=== PATIENT | female | born 1990 | race Caucasian/White ===

== ENCOUNTER 2018-04-08 10:40 | Emergency (ER) | payer MEDICAID ==
[~2018-04-08] VITALS: Ht 162.6 cm; Wt 59.1 kg
[~2018-04-08 10:40] MED LIST: BUSP5TAB3 PO; DIPH-423 PO; HYDR-4383 PO; IBUP-1984 PO; IMO2C PO; PRED20TA PO; PREN-139 PO
[2018-04-08 10:50] VITALS: BP 117/73
[2018-04-09] MEDS ORDERED: NO HOME MEDS (14:22)
== END 2018-04-08 13:42 | disposition left against medical advice (07) ==
LOC: ER 10:41
DX: R10.9 Unspecified abdominal pain (principal); R11.10 Vomiting, unspecified; Z53.21 Procedure and treatment not carried out due to patient leaving prior to being seen by health care provider

== ENCOUNTER 2018-04-09 02:46 | Inpatient (IN) | payer MEDICAID ==
[~2018-04-09] VITALS: Ht 162.6 cm; Wt 130.0 kg
[2018-04-09 03:45] LABS: BASOPHILS % (AUTO) 0.3 % (0-1); EOSINOPHILS % (AUTO) 0.4 % (0-6); HEMATOCRIT 37.7 % (35.0-45.0); HEMOGLOBIN 12.3 g/dl (12.0-16.0); INR 1.1 INR; LYMPHOCYTES # (AUTO) 1.4 X10'3 (1.1-4.8); MEAN CORPUSCULAR HGB CONC 32.7 g/dL (33.0-36.5); MEAN CORPUSCULAR VOLUME 79.6 FL (78-98); MEAN PLATELET VOLUME 8.3 FL (7.4-10.4); MONOCYTES # (AUTO) 0.7 X10'3 (0-0.9); MONOCYTES % (AUTO) 7.5 % (2-12); NEUTROPHILS # (AUTO) 7.6 X10'3 (1.8-7.7); NEUTROPHILS % (AUTO) 77.2 % (42-75); PLATELET COUNT 217 X10'3 (140-440); PROTHROMBIN TIME 11.2 SECONDS (9.0-12.0); RED BLOOD COUNT 4.74 X10'6 (4.20-5.60); WHITE BLOOD COUNT 9.8 X10'3 (4.5-11.0)
[2018-04-09 03:53] LABS: ALBUMIN 3.3 G/DL (3.4-5.0); ALBUMIN/GLOBULIN RATIO 0.8 (1.1-1.5); ALKALINE PHOSPHATASE 199 IU/L (46-116); ANION GAP 16 (8-16); ASPARTATE AMINO TRANSFERASE 332 U/L (10-37); BILIRUBIN,TOTAL 1.4 MG/DL (0.1-1.0); BLOOD UREA NITROGEN 11 MG/DL (7-18); BUN/CREATININE RATIO 14.1 (6.6-38.0); CALCIUM 9.2 MG/DL (8.5-10.1); CHLORIDE 97 MMOL/L (99-107); CREATININE 0.78 MG/DL (0.40-0.90); GLUCOSE 151 MG/DL (70-104); LIPASE 80 U/L (73-393); POTASSIUM 3.4 MMOL/L (3.5-5.1); SODIUM 133 MMOL/L (135-145); TOTAL CARBON DIOXIDE 20.1 MMOL/L (24-32); TOTAL PROTEIN 7.7 G/DL (6.4-8.2); eGFR 87 ML/MIN
[2018-04-09 03:59] LABS: LYMPHOCYTES % (AUTO) 14.6 % (21-51)
[2018-04-09 04:00] LABS: ALANINE AMINOTRANSFERASE 1142 U/L (12-78)
[2018-04-09 07:15] LABS: CLARITY,URINE SLIGHTLY CLOUDY (Clear); COLOR,URINE AMBER (Yellow); GLUCOSE, URINE NEGATIVE (Neg); KETONES,URINE 40 mg/dl (Neg); LEUKOCYTE ESTERASE ,URINE LARGE (Neg); NITRITES, URINE POSITIVE (Neg); OCCULT BLOOD,URINE NEGATIVE (Neg); PROTEIN,URINE NEGATIVE (Neg)
[2018-04-09 07:17] LABS: UA COLLECTION TYPE VOIDED
[2018-04-09 07:20] LABS: URINE HCG NEGATIVE (NEG)
[2018-04-09 07:26] LABS: BACTERIA,URINE 3+ /HPF (Neg); MUCUS STRANDS NONE SEEN /LPF (Neg); SQUAMOUS EPITHELIAL CELL,UR MODERATE /LPF (FEW)
[2018-04-09] MEDS ORDERED: proCHLORperazine 10 MG/2 ml inj IV ONE (09:20)
[2018-04-09] MEDS ORDERED: normal saline 1000ML IV soln IVB ONE ×2 (09:20→13:40)
[2018-04-09] MEDS ORDERED: morphine 4 MG/ML inj SYRINge IV ONE ×2 (09:20→16:10)
[2018-04-09] MEDS ORDERED: iohexol 300mg/ml 100ml inj. ONE (09:50)
--- NOTE | 2018-04-09 10:04 | NUR ---
ultrasound at bedside
--- NOTE | 2018-04-09 11:34 | NUR ---
PT IS BACK FROM CT
[2018-04-09] MEDS ORDERED: CefTRIAXone/D5W-Rocephin 1gm 50 ML IV ONE (12:05)
--- NOTE | 2018-04-09 12:46 | NUR ---
pt sleeping, easily arouseable, refusing pelvic examine "I just want to sleep...don't want to be poked and prodded anymore", explain benefits of examine and pt still refusing, Dr Mckeon aware
[2018-04-09] MEDS ORDERED: doxycycline inj 100 MG in normal saline 100ml IV soln 100 ML IV ONE (13:44)
[2018-04-09] MEDS ORDERED: azithromycin/NS 500mg/250ml 250 ML IV ONE (13:45)
[2018-04-09] MEDS ORDERED: NO HOME MEDS (14:22)
[2018-04-09] MEDS ORDERED: acetaminophen 325mg tablet PO PRN (14:50)
[2018-04-09] MEDS ORDERED: magnesium 2GM in 50ml NS 50 ML IV PRN (14:50)
[2018-04-09] MEDS ORDERED: mag hydrox/Alum hydrox/simeth 30ml oral suspension PO PRN (14:50)
[2018-04-09] MEDS ORDERED: ondansetron/PF 4mg/2ml inj IV PRN (14:50)
[2018-04-09] MEDS ORDERED: magnesium Cl slow-release 64mg tablet PO PRN (14:50)
[2018-04-09] MEDS ORDERED: magnesium hydroxide 30ml (MOM) UD suspension PO PRN (14:50)
[2018-04-09] MEDS ORDERED: potassium Cl 40MEQ/NS 500ml 500 ML IV PRN ×2 (14:50)
[2018-04-09] MEDS ORDERED: magnesium 4gm in 100ml NS 100 ML IV PRN (14:50)
[2018-04-09] MEDS ORDERED: potassium Cl 20 mEq SR tablet PO PRN ×2 (14:50)
[2018-04-09] MEDS: metroNIDAZOLE-Flagyl 500mg/NS 100 ML IV SCH ×2 (14:55→16:00)
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
--- NOTE | 2018-04-09 16:19 | NUR ---
pt to MRI, medicated per order for RUQ abd pain, 09/02, pt is very tender to palpation
--- NOTE | 2018-04-09 16:51 | NUR ---
PER PROGRAM COORDINATOR EXECUTIVE EDUCATION PT IS UNABLE TO LIE STILL FOR MRI, UNABLE TO DO TEST
[2018-04-09] MEDS ORDERED: LORazepam 2 mg/ml vial IV ONE (16:55)
--- NOTE | 2018-04-09 17:03 | NUR ---
test engineering technician paged again, pt has been medicated, she said she cannot jovan lying flat and still for MRI due to increased pain radiating from RUQ abd to neck/shoulder
[2018-04-09] MEDS: CefTRIAXone/D5W-Rocephin 1gm 50 ML IV SCH (17:39)
--- NOTE | 2018-04-09 17:42 | NUR ---
Patient in room ED 7. I have received report from Alan WRIGHT and had the opportunity to ask questions he will start patient on antibiotic and primary fluids and bring to the floor. Will assume patient care when patient comes to floor.
[2018-04-09 18:00] VITALS: BP 120/76
--- NOTE | 2018-04-09 18:01 | NUR ---
Patient arrived to the floor very sedated. Ambulated to the bathroom to void patient then ambulated to bed oriented to room but will need to be re-oriented again. Vitals stable will get tele and place on patient ER started IV Rocephine on the floor. Will sign off to slot shift supervisor
--- NOTE | 2018-04-09 18:35 | NUR ---
Received report from Ana WRIGHT pt is resting on RA, had to sternal rub pt to get her to respond to name, pt woke up and went right back to sleep, pt responds to pain.
--- NOTE | 2018-04-09 18:49 | NUR ---
Problems reprioritized. Patient report given, questions answered & plan of care reviewed with Christian RN patient is still very drowsy had to sternal rub to arouse, tabs alarm placed on patient .
[2018-04-09] MEDS: normal saline 1000ml 1,000 ML IV SCH (18:55)
--- NOTE | 2018-04-09 19:10 | NUR ---
Unsure if pt received Flagyl down in ER day shift nurse unsure, will D/C and give Midnight dose.
--- NOTE | 2018-04-09 19:29 | NUR ---
pt has already received at least 2 ABX unable to get 2nd set of Blood cultures
[2018-04-09] MEDS: heparin, porcine 5000 units/ml vial SQ SCH (19:40)
[2018-04-09 19:45] VITALS: BP 104/65
[2018-04-09] MEDS ORDERED: HYDROcodone/acetaminophen 5mg/325mg tablet PO PRN (22:40)
[2018-04-10] VITALS: BP 114/69
[2018-04-10] MEDS: metroNIDAZOLE-Flagyl 500mg/NS 100 ML IV SCH ×3 (00:04→15:21)
[2018-04-10] MEDS: normal saline 1000ml 1,000 ML IV SCH ×2 (00:48→07:07)
[2018-04-10] MEDS ORDERED: HYDROcodone/acetaminophen 10/325mg tab PO PRN ×2 (05:10→10:30)
--- NOTE | 2018-04-10 05:22 | NUR ---
pt states she is having 8/10 pain and that the norco is not helping and that morphine will help her, I called Calli informed him of the 8/10 pain and that the Granby 5 was not helping, Dr. Mccurdy gave order to start Granby 10 right now give Q4H PRN for pain. I informed the patient that the doctor would only give me norco for her pain, and pt asked if she was going to have a different doctor for the day time I said yes but that there is no gurantee that that doctor would give her morhpine either. pt then asked for a sandwich and string cheese, I educated pt that she was on a clear liquid diet because she came in with abd pain and nausea so the doctors wanted to give her stomach a rest.
[2018-04-10 06:04] LABS: BASOPHILS % (AUTO) 0.8 % (0-1); EOSINOPHILS # (AUTO) 0.2 X10'3 (0-0.9); EOSINOPHILS % (AUTO) 4.7 % (0-6); HEMATOCRIT 31.6 % (35.0-45.0); LYMPHOCYTES # (AUTO) 0.9 X10'3 (1.1-4.8); LYMPHOCYTES % (AUTO) 26.1 % (21-51); MEAN CORPUSCULAR HEMOGLOBIN 25.8 PG (27.0-31.0); MEAN CORPUSCULAR HGB CONC 31.7 g/dL (33.0-36.5); MEAN CORPUSCULAR VOLUME 81.6 FL (78-98); MEAN PLATELET VOLUME 8.3 FL (7.4-10.4); MONOCYTES # (AUTO) 0.3 X10'3 (0-0.9); MONOCYTES % (AUTO) 10.3 % (2-12); NEUTROPHILS % (AUTO) 58.1 % (42-75); PLATELET COUNT 201 X10'3 (140-440); RED BLOOD COUNT 3.88 X10'6 (4.20-5.60); RED CELL DISTRIBUTION WIDTH 16.4 % (11.5-14.5); WHITE BLOOD COUNT 3.4 X10'3 (4.5-11.0)
--- NOTE | 2018-04-10 06:04 | NUR ---
Gave report to Ana WRIGHT pt appears to be sleeping on RA in no apparent distress, call light and items of freq use within reach.
[2018-04-10 06:47] LABS: ALANINE AMINOTRANSFERASE 849 U/L (12-78); ALBUMIN 2.5 G/DL (3.4-5.0); ALBUMIN/GLOBULIN RATIO 0.6 (1.1-1.5); ALKALINE PHOSPHATASE 144 IU/L (46-116); ANION GAP 9 (8-16); ASPARTATE AMINO TRANSFERASE 329 U/L (10-37); BILIRUBIN,TOTAL 0.5 MG/DL (0.1-1.0); BLOOD UREA NITROGEN 8 MG/DL (7-18); BUN/CREATININE RATIO 10.8 (6.6-38.0); CALCIUM 8.4 MG/DL (8.5-10.1); CHLORIDE 106 MMOL/L (99-107); CREATININE 0.74 MG/DL (0.40-0.90); GLUCOSE 149 MG/DL (70-104); MAGNESIUM 1.8 MG/DL (1.5-2.4); POTASSIUM 3.5 MMOL/L (3.5-5.1); SODIUM 138 MMOL/L (135-145); TOTAL CARBON DIOXIDE 22.9 MMOL/L (24-32); TOTAL PROTEIN 6.4 G/DL (6.4-8.2); eGFR > 90 ML/MIN
[2018-04-10] MEDS: heparin, porcine 5000 units/ml vial SQ SCH (07:08)
[2018-04-10 07:22] VITALS: BP 102/59
[2018-04-10] MEDS ORDERED: morphine 2 MG/ML inj. syringe IV ONE (07:55)
[2018-04-10] MEDS ORDERED: LORazepam 2 mg/ml vial IV PRN (07:55)
[2018-04-10] MEDS ORDERED: K and/or MAG REPLACEMENT MC SCH (08:00)
[2018-04-10] MEDS: CefTRIAXone/D5W-Rocephin 1gm 50 ML IV SCH (08:10)
[2018-04-10 10:16] VITALS: BP 120/78
--- NOTE | 2018-04-10 11:10 | NUR ---
Patient very insistent on going downstairs to smoke, Patient sister at bedside. Discussed situation with blankbook forwarder. Vitals are stable at this time. Patient will go out front to have a smoke then come right back to the floor. Tele office notified.
[2018-04-10] MEDS ORDERED: traMADol 50MG tablet PO PRN (11:30)
[2018-04-10 12:00] VITALS: BP 113/74
[2018-04-10] MEDS ORDERED: morphine 2 MG/ML inj. syringe IV PRN (12:35)
--- NOTE | 2018-04-10 15:15 | NUR ---
Received call from Tele patients HR was 130 at the same time PCT Cristin advised patient was on a walk. Called down to the front security desk who stated patient was there. I advised patient needed to come back up to the floor due to elevated heart rate. Patients vitals on the floor 98.1 T HR 108 97% RA RR 18 Pain 10 BP 112/75. Patients mother at bedside. Patient stated that her Grandmother is at [facility] from a heart attack 4 days ago. Patients mother at bedside and we discussed patients stating that she wanted to leave AMA to see her grandmother and to eat. Patient was begging me to let her have a yoruba forde. I advised patient per Doctors orders she can only have clear. Patient very upset that she can only have clear. Patient was educated that if she left AMA and ate the pain would probably get worse and she would be back in the hospital and have to start this entire process over. Patient was stating she was in pain I advised her I could give her some Morphine. Patient asked what dose I was giving her and was upset it was not the same dose she was receiving in the ER. Patient was given 1mg IV Morphine per MD orders and was instantly asleep.
--- NOTE | 2018-04-10 16:00 | NUR ---
Patient turned construction carpenters helper light stated she wants to Leave AMA. Patient aware of the dangers of leaving. Patient verbalized understanding and stated she wants to go to [facility] because her grandmother is there and had a Heart attack 4 days ago and her mom sent her a picture and her grandmother does not look good so she wants to be closer to her. Patient aware I just gave her morphine and she can not city route driver. Patient stated her mother is picking her up. Patients IV dc'd cannula intact no bleeding, Tele removed and patient got her self dressed and ambulated self to the lobby to wait for her mother to pick her up. Dr Richards aware.
[2018-04-10] MEDS ORDERED: lactobacillus rhamnosus 10,000 MMU CELLS/CAPSULE PO SCH (20:00)
[2018-04-11 11:16] LABS: HBSAG SCREEN Negative (Negative); HEP A AB, IGM Negative (Negative); HEP B CORE AB, IGM Negative (Negative); HEPATITIS C ANTIBODY >11.0 s/co ratio (0.0-0.9)
== END 2018-04-10 16:13 | disposition left against medical advice (07) ==
LOC: ER 02:46 → ED HOLD 14:48 → SUR 3N 17:51
PROVIDERS: ADMIT Internal Medicine; ATTEND Internal Medicine
PROC: BW211ZZ Computerized Tomography (CT Scan) of Abdomen and Pelvis using Low Osmolar Contrast (ICD-10-PCS; principal; 2018-04-09)
DX: B17.9 Acute viral hepatitis, unspecified (principal); E87.1 Hypo-osmolality and hyponatremia; N39.0 Urinary tract infection, site not specified; D64.9 Anemia, unspecified; E86.0 Dehydration; F17.200 Nicotine dependence, unspecified, uncomplicated; R73.9 Hyperglycemia, unspecified; J45.909 Unspecified asthma, uncomplicated; Z53.21 Procedure and treatment not carried out due to patient leaving prior to being seen by health care provider; R94.5 Abnormal results of liver function studies; F12.90 Cannabis use, unspecified, uncomplicated; R00.0 Tachycardia, unspecified; Z87.442 Personal history of urinary calculi; Z98.891 History of uterine scar from previous surgery; Z88.0 Allergy status to penicillin
CPT/HCPCS: 36415; 71045; 74177; 76700; 80053; 80074; 81001; 81025; 83605; 83690; 83735; 84145; 85025; 85610; 87040; 87077; 87088; 87186; 96361; 96365; 96367; 96375; 99285; G0378; J0456; J0696; J0780; J1644; J2060; J2270; J2405; J3490; J7030; Q9967

== ENCOUNTER 2018-05-19 12:41 | Emergency (ER) | payer MEDICAID, OTHER ==
[~2018-05-19] VITALS: Ht 160 cm; Wt 59.1 kg
[~2018-05-19 12:41] MED LIST changes: -BUSP5TAB3 PO; -DIPH-423 PO; -HYDR-4383 PO; -IBUP-1984 PO; -IMO2C PO; +NO HOME MEDS; -PRED20TA PO; -PREN-139 PO
[2018-05-19] MEDS ORDERED: iohexol 350MG/ML 100ml bottle IV ONE (13:09)
[2018-05-19] MEDS ORDERED: ondansetron/PF 4mg/2ml inj IV ONE (13:40)
--- NOTE | 2018-05-19 14:35 | NUR ---
Pt difficult IV start and blood draw. Pt requiring line for CTA and medications. Dr. Christie updated and PICC RN to be paged for possible extended IV line placement
--- NOTE | 2018-05-19 14:52 | NUR ---
PICC RN here assessing for IV line placement.
[2018-05-19] MEDS: morphine 4 MG/ML inj SYRINge IV PRN ×2 (15:09→17:55)
[2018-05-19 15:45] LABS: BASOPHILS # (AUTO) 0.1 X10'3 (0-0.2); BASOPHILS % (AUTO) 0.9 % (0-1); EOSINOPHILS # (AUTO) 0.3 X10'3 (0-0.9); EOSINOPHILS % (AUTO) 3.5 % (0-6); HEMATOCRIT 36.3 % (35.0-45.0); HEMOGLOBIN 11.8 g/dl (12.0-16.0); LYMPHOCYTES # (AUTO) 1.6 X10'3 (1.1-4.8); LYMPHOCYTES % (AUTO) 20.8 % (21-51); MEAN CORPUSCULAR HEMOGLOBIN 25.3 PG (27.0-31.0); MEAN CORPUSCULAR HGB CONC 32.5 g/dL (33.0-36.5); MEAN CORPUSCULAR VOLUME 77.7 FL (78-98); MEAN PLATELET VOLUME 7.8 FL (7.4-10.4); MONOCYTES # (AUTO) 0.7 X10'3 (0-0.9); MONOCYTES % (AUTO) 8.9 % (2-12); NEUTROPHILS # (AUTO) 5.2 X10'3 (1.8-7.7); NEUTROPHILS % (AUTO) 65.9 % (42-75); PLATELET COUNT 242 X10'3 (140-440); RED BLOOD COUNT 4.67 X10'6 (4.20-5.60); RED CELL DISTRIBUTION WIDTH 16.7 % (11.5-14.5); WHITE BLOOD COUNT 7.8 X10'3 (4.5-11.0)
[2018-05-19 15:52] LABS: HCG SERUM QL NEGATIVE
[2018-05-19 15:56] LABS: ALANINE AMINOTRANSFERASE 630 U/L (12-78); ALBUMIN 3.4 G/DL (3.4-5.0); ALBUMIN/GLOBULIN RATIO 0.8 (1.1-1.5); ALKALINE PHOSPHATASE 90 IU/L (46-116); ANION GAP 11 (8-16); ASPARTATE AMINO TRANSFERASE 207 U/L (10-37); BILIRUBIN,TOTAL 0.4 MG/DL (0.1-1.0); BLOOD UREA NITROGEN 17 MG/DL (7-18); BUN/CREATININE RATIO 28.3 (6.6-38.0); CALCIUM 9.1 MG/DL (8.5-10.1); CHLORIDE 105 MMOL/L (99-107); ETHANOL < 0.010 GM/DL (0.0-0.010); GLUCOSE 79 MG/DL (70-104); POTASSIUM 4.1 MMOL/L (3.5-5.1); SODIUM 138 MMOL/L (135-145); TOTAL CARBON DIOXIDE 22.1 MMOL/L (24-32); TOTAL PROTEIN 7.5 G/DL (6.4-8.2); eGFR > 90 ML/MIN
--- NOTE | 2018-05-19 16:05 | NUR ---
Pt taken out to have CTA.
[2018-05-19] MEDS ORDERED: normal saline 1000ml 1,000 ML IV ONE (17:15)
--- NOTE | 2018-05-19 18:10 | NUR ---
Reported to MD Christie pt with hx of PCN allergy and Rocephin ordered. Receive verbal instruction from Dr Christie pt is to receive Rocephin ABX and pt verbally confirmed she has received Rocephin in past without reaction.
[2018-05-19 18:39] LABS: CLARITY,URINE CLOUDY (Clear); COLOR,URINE YELLOW (Yellow); GLUCOSE, URINE NEGATIVE (Neg); KETONES,URINE TRACE mg/dl (Neg); LEUKOCYTE ESTERASE ,URINE TRACE (Neg); NITRITES, URINE NEGATIVE (Neg); OCCULT BLOOD,URINE TRACE-LYSED (Neg); PROTEIN,URINE NEGATIVE (Neg); UROBILINOGEN,URINE 0.2 E.U/dL (0.2-1.0)
[2018-05-19 18:41] LABS: UA COLLECTION TYPE OTHER
[2018-05-19 18:46] LABS: BACTERIA,URINE 4+ /HPF (Neg); RBC,URINE 0-2 /HPF (0-2); SQUAMOUS EPITHELIAL CELL,UR FEW /LPF (FEW)
[2018-05-19 18:47] LABS: URINE AMPHETAMINE SCREEN POSITIVE (Neg); URINE BARBITUATE SCREEN NEGATIVE (Neg); URINE BENZODIAZEPINES SCREEN NEGATIVE (Neg); URINE CANNABINOID SCREEN NEGATIVE (Neg); URINE COCAINE SCREEN NEGATIVE (Neg); URINE METHADONE SCREEN NEGATIVE (Neg); URINE OPIATE SCREEN POSITIVE (Neg); URINE PHENCYCLIDINE SCREEN NEGATIVE (Neg)
--- NOTE | 2018-05-19 20:35 | NUR ---
Pt received STI prophylaxis medications Rocephin and Zithromax per protocol.
[2018-05-19] MEDS ORDERED: CEPH500C5 PO (20:40)
[2018-05-19] MEDS ORDERED: HYDR-4353 PO (20:51)
[2018-05-20 03:09] VITALS: BP 130/76
== END 2018-05-19 21:00 | disposition home or self-care (01) ==
LOC: ER 12:42 → EEVIPCON 12:42 → ER 21:00
DX: S93.401A Sprain of unspecified ligament of right ankle, initial encounter (principal); S10.93XA Contusion of unspecified part of neck, initial encounter; T74.21XA Adult sexual abuse, confirmed, initial encounter; N39.0 Urinary tract infection, site not specified; M25.511 Pain in right shoulder; J45.909 Unspecified asthma, uncomplicated; F17.200 Nicotine dependence, unspecified, uncomplicated; F12.90 Cannabis use, unspecified, uncomplicated; F15.90 Other stimulant use, unspecified, uncomplicated; Z56.0 Unemployment, unspecified; Z88.0 Allergy status to penicillin; Z59.0 Homelessness; Y93.89 Activity, other specified; Y92.89 Other specified places as the place of occurrence of the external cause; Y99.8 Other external cause status
CPT/HCPCS: 36415; 70498; 71045; 73030; 73600; 80053; 80305; 80320; 81001; 84703; 85025; 87077; 87088; 87186; 96361; 96374; 96375; 96376; 99284; J2270; J2405; J7030; Q9967

== ENCOUNTER 2018-09-12 09:05 | Emergency (ER) | payer MEDICAID, OTHER ==
[~2018-09-12] VITALS: Ht 162.6 cm; Wt 63.6 kg
[~2018-09-12 09:05] MED LIST changes: +CEPH500C5 PO
[2018-09-12 09:14] VITALS: BP 112/72
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
--- NOTE | 2018-09-12 10:04 | NUR ---
[employer] AT BEDSIDE OFFICER GIOVANNA SEAY #[id number]
--- NOTE | 2018-09-12 10:19 | NUR ---
PT IS SLEEPING LAYING SUPINE, RESPIRATIONS EVEN AND UNLABORED. NO DISTRESS NOTED AT THIS TIME.
[2018-09-12] MEDS ORDERED: ondansetron 4mg rapidly disintigrating tab PO ONE (10:50)
== END 2018-09-12 12:46 | disposition left against medical advice (07) ==
LOC: ER 09:06
DX: S00.83XA Contusion of other part of head, initial encounter (principal); Y04.8XXA Assault by other bodily force, initial encounter; Y93.89 Activity, other specified; Y92.89 Other specified places as the place of occurrence of the external cause; Y99.8 Other external cause status; M79.604 Pain in right leg; M79.605 Pain in left leg; M54.9 Dorsalgia, unspecified; J45.909 Unspecified asthma, uncomplicated; F11.10 Opioid abuse, uncomplicated; F12.90 Cannabis use, unspecified, uncomplicated; F15.90 Other stimulant use, unspecified, uncomplicated; Z87.442 Personal history of urinary calculi; Z98.51 Tubal ligation status; Z98.890 Other specified postprocedural states; Z56.0 Unemployment, unspecified; Z88.0 Allergy status to penicillin; Z79.899 Other long term (current) drug therapy
CPT/HCPCS: 70450; 70486; 99284; J2405

== ENCOUNTER 2018-10-16 11:42 | Emergency (ER) | payer MEDICAID, OTHER ==
[~2018-10-16] VITALS: Ht 162.6 cm; Wt 71.0 kg
[2018-10-16 11:52] VITALS: BP 144/81
[2018-10-16 12:56] LABS: BASOPHILS % (AUTO) 0.7 % (0-1); EOSINOPHILS # (AUTO) 0.2 X10'3 (0-0.9); EOSINOPHILS % (AUTO) 5.7 % (0-6); HEMATOCRIT 37.6 % (35.0-45.0); HEMOGLOBIN 12.4 g/dl (12.0-16.0); LYMPHOCYTES # (AUTO) 1.4 X10'3 (1.1-4.8); LYMPHOCYTES % (AUTO) 31.4 % (21-51); MEAN CORPUSCULAR HEMOGLOBIN 27.2 PG (27.0-31.0); MEAN CORPUSCULAR HGB CONC 32.9 g/dL (33.0-36.5); MEAN CORPUSCULAR VOLUME 82.8 FL (78-98); MEAN PLATELET VOLUME 8.2 FL (7.4-10.4); MONOCYTES # (AUTO) 0.4 X10'3 (0-0.9); MONOCYTES % (AUTO) 8.8 % (2-12); NEUTROPHILS # (AUTO) 2.4 X10'3 (1.8-7.7); NEUTROPHILS % (AUTO) 53.4 % (42-75); PLATELET COUNT 227 X10'3 (140-440); RED BLOOD COUNT 4.54 X10'6 (4.20-5.60); RED CELL DISTRIBUTION WIDTH 15.4 % (11.5-14.5); WHITE BLOOD COUNT 4.4 X10'3 (4.5-11.0)
[2018-10-16 13:12] LABS: URINE HCG NEGATIVE (NEG)
[2018-10-16 13:15] LABS: CLARITY,URINE BLOODY (Clear); COLOR,URINE RED (Yellow); UA COLLECTION TYPE CLN CATCH MIDSTREAM
[2018-10-16 13:21] LABS: BACTERIA,URINE 1+ /HPF (Neg); CAL OXALATE CRYSTALS 1+ /HPF (NEGATIVE); MUCUS STRANDS NONE SEEN /LPF (Neg); RBC,URINE TNTC /HPF (0-2); SQUAMOUS EPITHELIAL CELL,UR MODERATE /LPF (FEW)
[2018-10-16 13:23] LABS: ALANINE AMINOTRANSFERASE 182 U/L (12-78); ALBUMIN 3.4 G/DL (3.4-5.0); ALBUMIN/GLOBULIN RATIO 0.8 (1.1-1.5); ALKALINE PHOSPHATASE 43 IU/L (46-116); ANION GAP 8 (8-16); ASPARTATE AMINO TRANSFERASE 63 U/L (10-37); BILIRUBIN,TOTAL 0.5 MG/DL (0.1-1.0); BLOOD UREA NITROGEN 11 MG/DL (7-18); BUN/CREATININE RATIO 14.7 (6.6-38.0); CALCIUM 8.5 MG/DL (8.5-10.1); CHLORIDE 108 MMOL/L (99-107); CREATININE 0.75 MG/DL (0.40-0.90); GLUCOSE 116 MG/DL (70-104); LIPASE 106 U/L (73-393); POTASSIUM 3.4 MMOL/L (3.5-5.1); SODIUM 141 MMOL/L (135-145); TOTAL PROTEIN 7.7 G/DL (6.4-8.2); eGFR > 90 ML/MIN
== END 2018-10-16 15:00 | disposition left against medical advice (07) ==
LOC: ER 11:43
DX: R10.31 Right lower quadrant pain (principal); R10.32 Left lower quadrant pain; M54.9 Dorsalgia, unspecified; R19.7 Diarrhea, unspecified; Z53.21 Procedure and treatment not carried out due to patient leaving prior to being seen by health care provider
CPT/HCPCS: 36415; 80053; 81001; 81025; 83690; 85025; 85610; 87077; 87088; 87186

== ENCOUNTER 2018-12-13 20:13 | Emergency (ER) | payer MEDICAID ==
[~2018-12-13] VITALS: Ht 162.6 cm; Wt 63.6 kg
[2018-12-13] MEDS ORDERED: ringers solution, lacted 1,000 ML IV ONE ×2 (21:05→23:00)
[2018-12-13] MEDS ORDERED: ketorolac trometh. 30mg/ml inj. IV ONE (21:15)
[2018-12-13] MEDS ORDERED: ondansetron/PF 4mg/2ml inj IV ONE ×2 (21:15→22:55)
[2018-12-13] MEDS ORDERED: iohexol 300mg/ml 100ml inj. ONE (21:19)
[2018-12-13 22:12] LABS: BASOPHILS # (AUTO) 0.1 X10'3 (0-0.2); BASOPHILS % (AUTO) 0.9 % (0-1); EOSINOPHILS # (AUTO) 0.3 X10'3 (0-0.9); EOSINOPHILS % (AUTO) 5.2 % (0-6); HEMATOCRIT 34.7 % (35.0-45.0); HEMOGLOBIN 11.6 g/dl (12.0-16.0); LYMPHOCYTES # (AUTO) 1.9 X10'3 (1.1-4.8); MEAN CORPUSCULAR HEMOGLOBIN 27.7 PG (27.0-31.0); MEAN CORPUSCULAR HGB CONC 33.5 g/dL (33.0-36.5); MEAN CORPUSCULAR VOLUME 82.6 FL (78-98); MONOCYTES # (AUTO) 0.6 X10'3 (0-0.9); MONOCYTES % (AUTO) 10.5 % (2-12); NEUTROPHILS % (AUTO) 51.4 % (42-75); PLATELET COUNT 228 X10'3 (140-440); RED CELL DISTRIBUTION WIDTH 15.7 % (11.5-14.5); WHITE BLOOD COUNT 5.8 X10'3 (4.5-11.0)
[2018-12-13 22:17] LABS: ALBUMIN 3.4 G/DL (3.4-5.0); ANION GAP 10 (8-16); BLOOD UREA NITROGEN 10 MG/DL (7-18); BUN/CREATININE RATIO 13.2 (6.6-38.0); CALCIUM 9.6 MG/DL (8.5-10.1); CHLORIDE 105 MMOL/L (99-107); CREATININE 0.76 MG/DL (0.40-0.90); GLUCOSE 83 MG/DL (70-104); POTASSIUM 3.9 MMOL/L (3.5-5.1); SODIUM 140 MMOL/L (135-145); TOTAL CARBON DIOXIDE 24.7 MMOL/L (24-32); eGFR 90 ML/MIN
[2018-12-13 22:32] LABS: URINE HCG NEGATIVE (NEG)
[2018-12-13 22:33] LABS: CLARITY,URINE CLOUDY (Clear); COLOR,URINE YELLOW (Yellow); GLUCOSE, URINE NEGATIVE (Neg); KETONES,URINE TRACE mg/dl (Neg); LEUKOCYTE ESTERASE ,URINE MODERATE (Neg); NITRITES, URINE NEGATIVE (Neg); OCCULT BLOOD,URINE LARGE (Neg); PROTEIN,URINE NEGATIVE (Neg); UA COLLECTION TYPE CLN CATCH MIDSTREAM; UROBILINOGEN,URINE 0.2 E.U/dL (0.2-1.0)
[2018-12-13 22:43] LABS: WBC,URINE 30-50 /HPF (0-4)
[2018-12-13 22:44] LABS: BACTERIA,URINE 1+ /HPF (Neg); RBC,URINE 0-2 /HPF (0-2); SQUAMOUS EPITHELIAL CELL,UR MANY /LPF (FEW)
--- NOTE | 2018-12-13 22:49 | NUR ---
LAB CALLED URINE REJECTED FOR CULTURE
[2018-12-13] MEDS ORDERED: CefTRIAXone/D5W-Rocephin 1gm 50 ML IV ONE (22:50)
--- NOTE | 2018-12-13 22:56 | NUR ---
Pt requested to provide additional urine sample and she reports she does not feel well enough to do so at this time.
[2018-12-13] MEDS ORDERED: morphine 4 MG/ML inj SYRINge IV ONE (23:00)
[2018-12-13] MEDS ORDERED: oxyCODONE/APAP 5-325mg tablet PO ONE (23:05)
[2018-12-13] MEDS ORDERED: ONDA4TAB6 PO (23:06)
[2018-12-13] MEDS ORDERED: CEFD300C3 PO (23:06)
[2018-12-13 23:55] VITALS: BP 109/47
--- NOTE | 2018-12-14 00:20 | NUR ---
Pt given a sandwich and cranberry juice to eat and drink while awaiting her ride.
== END 2018-12-14 00:44 | disposition home or self-care (01) ==
LOC: ER 20:15
DX: N39.0 Urinary tract infection, site not specified (principal); R11.2 Nausea with vomiting, unspecified; R00.0 Tachycardia, unspecified; J45.909 Unspecified asthma, uncomplicated; F17.200 Nicotine dependence, unspecified, uncomplicated; F12.90 Cannabis use, unspecified, uncomplicated; F15.90 Other stimulant use, unspecified, uncomplicated; Z56.0 Unemployment, unspecified; Z88.0 Allergy status to penicillin; Z79.2 Long term (current) use of antibiotics; Z87.442 Personal history of urinary calculi; Z98.51 Tubal ligation status; Z98.890 Other specified postprocedural states; Z79.899 Other long term (current) drug therapy
CPT/HCPCS: 36415; 74177; 80048; 81001; 81025; 83605; 85025; 96361; 96365; 96375; 96376; 99284; J0696; J1885; J2405; J7030; Q9967; J7120